=== PATIENT | male | born 1950 | race African-American/Black ===

== ENCOUNTER 2017-08-09 10:16 | Outpatient (CLI) | payer MEDICARE ==
--- NOTE | 2017-08-09 14:37 | RAD ---
3 VIEWS LUMBAR SPINE INCLUDING FLEXION AND EXTENSION VIEWS: Date: 08/09/17 HISTORY: Lumbar spinal stenosis. COMPARISON: 12/02/15. FINDINGS: Based on lateral imaging, there do appear to be five non-rib bearing lumbar-type vertebral bodies. V ertebral body heights are within normal limits. Degenerative changes are again seen, predominantly i nvolving the lower lumbar spine with narrowing of the intervertebral disc spaces at the L3-4, L4-5, and to a greater extent the L5-S1 level where there are end plate degenerative changes and vacuum ph enomenon at the L5-S1 level. Multilevel facet degenerative changes are again greater in the lower tomás mbar spine. There is Grade I anterolisthesis of L4 on L5, similar to the prior exam. There does appear to be sli ght abnormal translational motion between the flexion and extension views with the degree of anterol isthesis on flexion measuring approximately 7.0 mm and on extension the degree of anterolisthesis me asures approximately 5-6 mm. Vascular calcifications seen in the abdominal aorta. IMPRESSION: Multilevel degenerative changes again greatest in the lower lumbar spine with Grade I anterolisthesi s at the L4-5 level. There is suggestion of slight abnormal translational motion between the flexion and extension views. POS: [facility]
--- NOTE | 2017-08-09 15:17 | MRI ---
MRI LUMBAR SPINE WITHOUT IV CONTRAST: Date: 08/09/17 INDICATION: Lumbar spinal stenosis. COMPARISON: Radiographs dated 08/09/17 and 12/02/15. FINDINGS: There is heterogeneous marrow signal intensity which can be seen with red marrow hyperplasia. This c an be seen in patients with chronic anemia, smoking or obesity. There are Modic end plate degenerative changes seen about L5-S1. Conus is seen to terminate at approximately the L2 vertebral level. There is Grade I anterolisthesis of L4 on L5. At L5-S1, there is a broad based disc osteophyte complex and facet hypertrophy inducing mild central canal narrowing with severe bilateral lateral recess narrowing with probable impingement of the tra versing S1 nerve roots. There is loss of disc space height in addition to the disc osteophyte complex and facet hypertrophy inducing moderate to severe bilateral neural foraminal narrowing. At L4-5, there is a broad based disc bulge with facet hypertrophy and ligamentum flavum hypertrophy inducing moderate to severe central canal narrowing with moderate to severe bilateral neural foramin al narrowing. At L3-4, there is a broad based bulge with facet hypertrophy and ligamentum flavum hypertrophy induc ing mild central canal narrowing with moderate to severe left and moderate right neural foraminal na rrowing. At L2-3, there is a broad based bulge with facet hypertrophy inducing mild bilateral neural foramina l narrowing. At L1-2, there is no appreciable central canal or neural foraminal narrowing. At L12-L1, there is mild facet joint degenerative change without appreciable central canal narrowing or neural foraminal narrowing. At L1-L2, there is an asymmetric to the left broad based bulge and facet hypertrophy inducing modera te to severe bilateral neural foraminal narrowing, right greater than left. IMPRESSION: 1. Multilevel central canal and neural foraminal narrowing most pronounced at L4-5 and L5-S1. There is also prominent neural foraminal narrowing seen at T11-T12. 2. Heterogeneous marrow signal intensity may be related to underlying marrow hyperplasia. Recommend correlation for any symptoms and signs of chronic anemia. This also can be seen in patients who are chronic smokers or in patients who are obese. POS: [facility]
== END 2017-08-09 10:17 | disposition home or self-care (01) ==
LOC: TBSIIMAG 10:16
PROVIDERS: ATTEND Neurological Surgery
DX: M43.16 Spondylolisthesis, lumbar region (principal); M47.816 Spondylosis without myelopathy or radiculopathy, lumbar region; M99.83 Other biomechanical lesions of lumbar region
CPT/HCPCS: 72100; 72148

== ENCOUNTER 2017-08-20 08:15 | Outpatient (CLI) | payer MEDICARE ==
--- NOTE | 2017-08-20 10:28 | ULT ---
ULTRASOUND ABDOMINAL AORTA: Date: 08/20/17 HISTORY: Nicotine use. Aneurysm screening. COMPARISON: Ultrasound abdomen aorta 04/15/15. FINDINGS: Proximal aorta measures 2.9 x 2.3 cm. Mid aorta measures 1.7 x 1.7 cm. Distal aorta measures 1.6 x 1.6 cm. No focal aneurysmal dilatation. Iliac vessels are patent. IMPRESSION: 1. No aneurysmal dilatation of the aorta. 2. Mild interval increase in size of the aorta relative to prior examination. Continued screening r ecommended. POS: [facility]
--- NOTE | 2017-08-20 10:43 | CT ---
LOW DOSE LUNG SCREENING CT: Date: 08/20/17 HISTORY: Lung cancer screening. Patient has smoked intermittently since 13 years of age. At least a 30 year s moking history. Patient stopped approximately 4 years ago. COMPARISON: None. TECHNIQUE: Low dose screening CT is performed following institutional protocol. FINDINGS: Lung Screening Specific (Lung-RADS): Negative. Minor findings not suspicious for primary lung cancer. Potential Significant Incidentals (Lung-RADS Category S): None. Pulmonary Incidentals: No significant pulmonary incidentals. Other Incidentals: Calcified lymph nodes in the left hilum and prevascular space are noted. Mild coronary artery diseas e is identified. IMPRESSION: 1. Lung-RADS Category 1: Negative. No evidence of primary lung cancer. 2. Lung-RADS Category S: Negative. No new or unknown potential significant incidental findings req uiring additional evaluation. 3. Other incidentals as above. 4. Patient should return in 1 year for routine low dose screening CT. POS: [facility]
== END 2017-08-20 08:16 | disposition home or self-care (01) ==
LOC: CT 08:15
PROVIDERS: ATTEND Family Medicine
DX: Z13.6 Encounter for screening for cardiovascular disorders (principal); Z87.891 Personal history of nicotine dependence
CPT/HCPCS: 76775; 80061; 81001; 83036; G0103; G0297; 36415; 80053; 84443; 85025

== ENCOUNTER 2019-05-19 14:22 | Emergency (ER) | payer MEDICARE | END 2019-05-19 15:27 | disposition home or self-care (01) | LOC: ERS 14:22 | DX: E86.0 Dehydration (principal); M62.838 Other muscle spasm; N40.0 Benign prostatic hyperplasia without lower urinary tract symptoms; F32.9 Major depressive disorder, single episode, unspecified; Z79.899 Other long term (current) drug therapy | CPT/HCPCS: 99284 ==

== ENCOUNTER 2019-10-13 13:31 | Outpatient (CLI) | payer MEDICARE ==
--- NOTE | 2019-10-13 14:45 | CT ---
EXAM: CT chest without contrast PROVIDED CLINICAL HISTORY: Personal history of tobacco use COMPARISON: 08/20/2017 FINDINGS: The heart, pericardium and great vessels are suboptimally evaluated in the absence of IV contrast mat erial. Vascular calcification including coronary calcium is demonstrated. There is no evidence for thoracic lymph node enlargement. The airway appears patent and of normal caliber. No pleural fluid or pneumothorax apparent. Passive atelectatic changes are seen at the medial aspect of the right lower lobe adjacent to paraver tebral osteophyte formation associated with the thoracic spine. Calcified granulomata are seen involving the left upper lobe. The lungs are free of significant opacity. The osseous structures demonstrate no concerning lytic or blastic lesions. The visualized portions of the upper abdomen appear unremarkable. IMPRESSION: 1. Lung RADS category 1-negative. Continue annual screening. 2. Vascular calcification including coronary calcium.
== END 2019-10-13 13:32 | disposition home or self-care (01) ==
LOC: CT 13:31
PROVIDERS: ATTEND Family Medicine
DX: Z12.2 Encounter for screening for malignant neoplasm of respiratory organs (principal); Z87.891 Personal history of nicotine dependence; I25.10 Atherosclerotic heart disease of native coronary artery without angina pectoris
CPT/HCPCS: G0297

== ENCOUNTER 2020-11-11 11:13 | Outpatient (CLI) | payer MEDICARE ==
--- NOTE | 2020-11-11 12:01 | CT ---
EXAM: CT Pulmonary Lung Scan PROVIDED CLINICAL HISTORY: Annual follow-up evaluation low-dose lung CT screening. Personal history of tobacco use/nicotine depe ndence. COMPARISON: 10/13/2019 FINDINGS: A 6 mm slightly irregular nodular density is seen in the left lung apex. This was also present on lupis or study in 2019 and also on study in 2017 visualized on the coronal reformatted images and not significantly changed. No additional discrete no ncalcified pulmonary nodule is seen in the lungs bilaterally. Calcified granuloma i6s seen in the lateral aspect left upper lobe. There is stable area of scarring or chronic area of atelectasis posteromedial right lower lobe adjace nt to region of prominent osteophyte involving the thoracic spine. Minimal biapical pleural and parenchymal scarring is present. No consolidation or pleural fluid is identified. Vascular calcifications are seen in the coronary arteries and to a lesser extent involving the thorac ic aorta. Calcified left hilar and AP window lymph nodes are seen related to prior granulomatous disease. Likel y changes contrast does limit evaluation of vascular structures and mediastinal, but no enlarged lymph nodes are appreciated. Degenerative changes are seen in the spine with persistent moderate to severe right glenohumeral oste oarthropathy. No other interval change. IMPRESSION: Lung RADS category 2-continued annual screening with low-dose CT thorax in 12 months is recommended.
== END 2020-11-11 11:14 | disposition home or self-care (01) ==
LOC: BICCT 11:13
PROVIDERS: ATTEND Family Medicine
DX: Z12.2 Encounter for screening for malignant neoplasm of respiratory organs (principal); Z87.891 Personal history of nicotine dependence
CPT/HCPCS: 71271

== ENCOUNTER 2022-04-10 10:09 | Outpatient (CLI) | payer MEDICARE ==
[2022-04-10 11:42] LABS: Bilirubin Neg (Negative); Blood, Urine Negative (Negative); Clarity Clear (Clear); Glucose, Urine (Dipstick) Normal (Negative); Ketone, Urine Negative (Negative); Leukocyte 100 (Negative); Nitrite Negative (Negative); Protein, Urine (Dipstick) 15 mg/dl (Neg-Trace)
[2022-04-10 11:53] LABS: Hemoglobin 12.6 g/dL (13.5-17.5); Mean Corpuscular HGB CONC 33.9 g/dL (32.0-36.0); Mean Corpuscular Hemoglobin 31.6 pg (27.0-33.0); Mean Corpuscular Volume 93.2 fl (81.2-95.1); Platelet Count 259 10x3/uL (150-450); RBC Distribution Width 13.8 % (11.5-14.5); Red Blood Cell (RBC) Count 3.99 10x6/uL (4.32-5.72); White Blood Cell (WBC) Count 7.2 10x3/uL (3.5-10.5)
[2022-04-10 11:57] LABS: RBC/HPF 0-3 HPF (0-3)
[2022-04-10 11:58] LABS: Bacteria/HPF Rare-Few HPF (None Seen); Squamous Epithelial 0-3 HPF (0-3)
[2022-04-10 12:01] LABS: PTT 28.5 sec (22.0-33.0); Prothrombin Time 11.3 sec (9.5-12.1)
[2022-04-10 12:06] LABS: Anion Gap 14 mmol/L (10-20); BUN (Urea Nitrogen) 11 mg/dL (8.4-25.7); Calc. Creatinine Clearance 0 mL/min (70-130); Calcium 9.6 mg/dL (7.8-10.44); Carbon Dioxide 27 mmol/L (23-31); Chloride 104 mmol/L (98-107); Estimated GFR 94; Glucose 83 mg/dL (83-110); Potassium 4.3 mmol/L (3.5-5.1); Sodium 141 mmol/L (136-145)
== END 2022-04-10 10:10 | disposition home or self-care (01) ==
LOC: LABBT 10:09
PROVIDERS: ATTEND Urology
DX: Z01.818 Encounter for other preprocedural examination (principal); N40.1 Benign prostatic hyperplasia with lower urinary tract symptoms; N13.8 Other obstructive and reflux uropathy; G89.29 Other chronic pain; F32.9 Major depressive disorder, single episode, unspecified; N52.9 Male erectile dysfunction, unspecified; F19.11 Other psychoactive substance abuse, in remission; F17.210 Nicotine dependence, cigarettes, uncomplicated; Z86.19 Personal history of other infectious and parasitic diseases; Z20.822 Contact with and (suspected) exposure to COVID-19
CPT/HCPCS: 80048; 81001; 85027; 85610; 85730; 87086; 87811; 93005; 93010

== ENCOUNTER 2022-04-13 06:22 | Day surgery (SDC) | payer MEDICARE ==
[2022-04-12 12:51] VITALS: BMI 18.8
[2022-04-13] MEDS ORDERED: Propofol 1,000 MG/100 ML VIAL IV ONE (07:09)
[2022-04-13] MEDS ORDERED: Ketamine 50 MG/ML (10ML VIAL) ONE (07:09)
[2022-04-13] MEDS ORDERED: B & O ONE (08:12)
[2022-04-13] MEDS ORDERED: Levofloxacin 500 mg/D5W 100 ml Premix Bag ONE (08:21)
[2022-04-13] MEDS ORDERED: Phenazopyridine HCl 100 MG TAB ONE (09:55)
[2022-04-13] MEDS ORDERED: Oxybutynin 5 MG TAB ONE (09:56)
== END 2022-04-13 11:35 | disposition home or self-care (01) ==
LOC: SDC 06:22
PROVIDERS: ATTEND Urology
PROC: 0T7D8DZ Dilation of Urethra with Intraluminal Device, Via Natural or Artificial Opening Endoscopic (ICD-10-PCS; principal; 2022-04-13)
DX: N40.1 Benign prostatic hyperplasia with lower urinary tract symptoms (principal); N13.8 Other obstructive and reflux uropathy; R39.11 Hesitancy of micturition; R39.12 Poor urinary stream; N52.9 Male erectile dysfunction, unspecified; Z79.899 Other long term (current) drug therapy; Z87.891 Personal history of nicotine dependence
CPT/HCPCS: C9740; L8699; J1956; J2704